=== PATIENT | male | born 1995 | race African-American/Black ===

== ENCOUNTER 2022-05-07 12:36 | Emergency (ER) | payer OTHER ==
[2022-05-07 13:24] VITALS: BP 129/90
--- NOTE | 2022-05-07 13:54 | CT Report ---
PROCEDURE: HEAD WO INDICATIONS: head injury yesterday, cont headache today TECHNIQUE: Noncontrast 4.5 mm thick angled axial sections acquired from the foramen magnum to the vertex. For r adiation dose reduction, the following was used: automated exposure control, adjustment of mA and/or kV according to patient size. COMPARISON: None. FINDINGS: Image quality: Excellent. CSF spaces: Basal cisterns are patent. No extra-axial fluid collections. Ventricles are normal in size and shape. Brain: No midline shift. No intracranial masses or hemorrhage. Childers-white matter interface is norm al. Skull and face: Calvarium and visualized facial bones are intact, without suspicious lesions. Sinuses: Visualized sinuses demonstrate scattered ethmoid fluid. There is opacification of the left frontal sinus. IMPRESSION: 1. No acute intracranial process. Reviewed by: Maryam Arnold MD on 05/07/2022 1:52 PM PDT Approved by: Maryam Arnold MD on 05/07/2022 1:52 PM PDT Station ID: [id number]
--- NOTE | 2022-05-07 14:10 | ED Physician Documentation ---
PD HPI HEAD INJURY - Stated complaint Stated Complaint: HEAD INJ - Chief complaint Chief Complaint: Trauma Hd/Nk - History obtained from History obtained from: Patient - History of Present Illness Mechanism of head injury: Fell Pain level max: 5 Pain level now: 2 Location of injury: Front, Back Quality of pain: Aching, Dull Associated symptoms: LOC, Nausea / vomiting. No: Neck pain, Paresthesias, Seizures, Ear drainage, Nasal drainage Symptoms improve with: Rest Symptoms worsen with: Light, Noise Contributing factors: No: Anticoagulated, Intoxicated - Additional information Additional information: 26-year-old male, active [employer] presents to the emergency department after a head injury yesterday while playing flag football. He states that he was unc onscious for 30 seconds to 1 minute. Had a headache and some nausea, no neck pain, no paresthesias. Had continued headaches today and was sent here for evaluation by the [employer]. Better with rest, worse with light and noise. The headache is currently mild, 2 out of 10, front and back, dull and aching. Not on any blood thinners. No seizure activity. Review of Systems Constitutional: denies: Fever, Chills Respiratory: denies: Cough GI: reports: Nausea. denies: Abdominal Pain, Vomiting, Diarrhea Skin: denies: Rash Musculoskeletal: denies: Neck pain, Back pain Neurologic: reports: Confused (Patient states he was confused after the initial event, this resolved after about 30 seconds.) PD PAST MEDICAL HISTORY - Past Medical History Past Medical History: No - Past Surgical History Past Surgical History: No - Present Medications Home Medications: Ambulatory Orders Medication Instructions Recorded Confirmed No Known Home Medications 05/07/22 05/07/22 - Allergies Allergies/Adverse Reactions: Allergies Allergy/AdvReac Type Severity Reaction Status Date / Time No Known Drug Allergies Allergy Verified 05/07/22 13:24 - Living Situation Living Situation: reports: With family Living Arrangement: reports: At home - Social History Does the pt smoke?: No Does the pt drink ETOH?: No Does the pt have substance abuse?: No - Family History Family history: reports: Non contributory PD ED PE NORMAL - Vitals Vital signs reviewed: Yes - General General: Alert and oriented X 3, No acute distress - HEENT HEENT: Moist mucous membranes - Neck Neck: Supple, no meningeal sign, No bony TTP - Cardiac Cardiac: RRR - Respiratory Respiratory: No respiratory distress, Clear bilaterally - Abdomen Abdomen: Soft, Non tender, Non distended - Back Back: No spinal TTP - Derm Derm: Warm and dry - Neuro Neuro: Alert and oriented X 3, manager biologics 2-12 intact, No motor deficit, No sensory deficit, Normal speech Eye Opening: Spontaneous Motor: Obeys Commands Verbal: Oriented GCS Score: 15 - Psych Psych: Normal mood, Normal affect Results - Vitals Vitals: Vital Signs - 24 hr 05/07/22 13:19 Temperature 35.6 C L Heart Rate 58 L Respiratory 17 Rate Blood Pressure 129/90 H O2 Saturation 100 Oxygen O2 Source Room air - Rads (name of study) head CT Radiology: Final report received, EMP read contemporaneously, See rad report (no acute abnormality) PD MEDICAL DECISION MAKING - ED course Complexity details: reviewed results, re-evaluated patient, considered differential, d/w patient ED course: 26-year-old male with a closed head injury yesterday. Likely mild concussion. No acute findings on head CT. Normal cerebellar test. We will continue supportive care and have him follow-up with his doctor for further care. Patient counseled regarding signs and symptoms for which I believe and urgent re-evaluation would be necessary. Patient with good understanding of and agreement to plan and is comfortable going home at this time This document was made in part using voice recognition software. While efforts are made to proofread this document, sound alike and grammatical errors may occur. Departure - Departure Disposition: 01 Home, Self Care Clinical Impression: Concussion Qualifiers: Encounter type: initial encounter Loss of consciousness presence/duration: with LOC of 30 min or less Qualified Code(s): S06.0X1A - Concussion with loss of consciousness of 30 minutes or less, initial encounter Condition: Good Instructions: ED Concussion Follow-Up: CHARBEL CRAFT MD [Primary Care Provider] - Within 1 week Comments: Your head CT does not show any acute abnormalities today. You do appear to have a mild concussion. Please limit screen time. Do not drive until cleared by your doctor. If you develop headaches during activity, please stop that activity. Please return if you worsen. You will need to be cleared by her doctor to return to work. Forms: Activity restrictions Discharge Date/Time: 05/07/22 15:00
== END 2022-05-07 15:00 | disposition home or self-care (01) ==
LOC: ED 12:36
DX: S06.0X1A Concussion with loss of consciousness of 30 minutes or less, initial encounter (principal); W18.39XA Other fall on same level, initial encounter; Y93.62 Activity, american flag or touch football; R11.0 Nausea
CPT/HCPCS: 99282; 99284

== ENCOUNTER 2023-08-08 09:32 | Outpatient (CLI) | payer OTHER ==
--- NOTE | 2023-08-08 22:09 | SLEEP CARE CONSULTATION ---
Information from patient questionnaire entered by Odalys Littlejohn. I have reviewed and concur with the information entered by Odalys Littlejohn. This document represents the service I personally performed and the decisions made by me, Jose Paris MD, [facility]. History of Present Illness Service Date and Time: 08/08/2023 0932 Reason for Visit: New patient Chief Complaint: reports: Unrefreshed sleep, Excessive daytime sleepiness, Observed pauses in breathing Date of Onset: 1-2YRS Usual bedtime: 10-11PM Time it takes to fall asleep: 1-3MINS Snores at night: Yes Observed to quit breathing while asleep: Yes Sleeps alone due to snoring: Yes Number of times waking at night: 1-2 Reasons for waking at night: reports: Snoring Toss, Turn, or Twitch while sleeping: No Recalls having dreams: No Usually gets out of bed at: 515AM Feels refreshed in the morning: No Morning headache: No Sleepy or fatigued during the day: Yes Ever fallen asleep while driving: Yes Takes day naps: Yes Dreams during day naps: Yes Prior sleep studies: No Additional HPI information: I had the pleasure of seeing Mr. Lopez today regarding the possibility of him having a sleep disorder. As you know, he is a 27-year-old gentleman who complains of loud snore and excessive daytime sleepiness for about 1 2 years. The patient tells me that he normally goes to bed around 10 - 11 pm, and it takes him approximately 1 - 3 minutes to fall asleep. He has been told that he snores loudly and irregularly at night. He has also been observed to stop breathing in his sleep. His has to sleep in a separate room. He can recall waking up on the average of 1 - 2 times during the night. Most of the time he wakes up because of having to use the bathroom. He has awakened occasionally because of his own snoring, choking, and having to gasp for air. There is not a lot of tossing and turning in his sleep. No somniloquy (sleep talking) or somnambulism (sleep walking). Generally, he can recall having faheem ams. In the morning he usually gets up out of the bed around 5:45 a.m. not feeling refreshed nor rested. He usually does not have a morning headache. During the day he complains of feeling sleepy and fatigued. His score on [place] Sleepiness Scale is 14 out of 24. He has fallen asleep while driving but no accident. He usually takes naps during the day. Upon falling asleep during the day he reports having vivid dreams. He reports having sleep paralysis. He reports having impaired concentration during the day. He denies having restless leg syndrome. - Parasomnia Symptoms Ever been unable to move upon waking from sleep: Yes Walks in sleep: No Talks in sleep: No Ever acted out dreams in sleep: No Ever felt weak in the knees when startled or emotional: No Bothered by creepy, crawly, restless sensations in legs: No Problems with memory or concentration: Yes Subjective Initial [place] Sleepiness Scale score: 16 (07/02/23) Social History The patient's occupation is a AM. Patient is and lives in [place]. Have you smoked in the past 12 months: No Alcohol use: Yes Alcohol amount and frequency: 2-3 DRINKS TWICE A WEEK Caffeine use: Yes Caffeine amount and frequency: 1 DRINK OR 200MG EVERY WORKDAY Family History Family history of sleep disordered breathing: Yes Family Hx Sleep Apnea: Father: Snoring, Sleep apnea - Untreated Allergies and Home Medications Known drug allergies: No Drug allergies reviewed: Yes Home medication list reviewed: Yes Allergy and home medication list: Allergies No Known Drug Allergies Allergy (Verified 08/05/23 09:44) Review of Systems Weight gain over past 5 years: 20 Cardiovascular: denies: high blood pressure, palpitations, chest pain, irregular heart rate or pulse, leg or foot swelling, have to sleep sitting up, other Respiratory: denies: shortness of breath, wheeze, sputum production, chronic cough, other Gastrointestinal: denies: heartburn, difficulty swallowing, nausea, vomitting, diarrhea, abdominal pain, other Urinary: denies: incontinence, frequency, urgency, impotence, other Neurological: denies: headaches, seizure, head trauma, disorientation, speech dysfunction, gait or balance problems, fainting or unconsciousness, other Psychiatric: denies: Attention Deficit Hyperactivity, anxiety, depression, mood disorder, claustrophobia, other Ear/Nose/Throat: reports: sinus problems, wisdom teeth removed Endocrine: denies: thyroid disease, history of goiter, sluggishness, too hot or cold, excessive thirst, increased appetite, increased urination, unexplained weakness, other Musculoskeletal: denies: joint pain, neck pain, back pain, joint swelling, muscle pain or cramping, mobility problems, other Immunologic: denies: sneezing, rash, itching, allergies to food or environment, other Physical Exam Vital signs obtained and entered by: ODALYS Mills MA Blood Pressure: 152/99 (LEFT ARM) Cuff size: regular Heart Rate: 88 O2 Saturation: 96 Height: 6 ft Weight: 233 lb 3.2 oz Body Mass Index: 31.6 BMI Classification: Obese Neck circumference: 16.5 Mood/affect: Normal HEENT: No craniofacial malformation Nostrils: patent to airflow Turbinates: normal Septum: midline Mouth and throat: narrow oropharynx Soft palate: long Hard palate: arched Uvula: normal, long Uvula visualization: 50% Mallampati Class II Tongue: normal in size Tonsils: 1+ (right) Chin and jaw: normal size and position Neck: normal w/o lymphadenopathy or thyromegaly Heart: regular rate and rhythm Lungs: clear bilaterally Extremities: no edema or clubbing Neurologic: intact Impression and Plan IMPRESSION: 1. Obstructive Sleep Apnea-Hypopnea Syndrome, as suggested by history of loud and irregular snoring, observed cessation of breath while asleep, unrefreshed sleep, cognitive impairment, and daytime hypersomnolence. Narrow oropharynx is a common predisposing factor for obstructive sleep apnea- hypopnea syndrome. I recommend proceeding to polysomnography to confirm the diagnosis and to assess severity. If he has significant sleep disordered breathing, a manual CPAP titration study will also be performed to find the optimal treatment pressure. I informed the patient of what the sleep studies involve and after some discussion, he agreed to proceed. Plan: 1. Schedule polysomnography + manual CPAP titration study and return in 1 to 2 weeks after the study to discuss result and initiate therapy. 2. Avoid long distance driving or when feeling sleepy. 3. Avoid alcohol, sedatives, and muscle relaxants around bedtime. Counseling Topics: Weight control Follow up with Sleep Care in: 1-2 months Visit Type: In Office Time Spent with Patient (minutes): 15 Provider Statement: I spent 100% of the Face to Face Visit with the patient with greater than 50% spent counseling the patient and coordination of care.
[2023-08-08 22:16] VITALS: BP 152/99; O2SAT 96
== END 2023-08-08 09:33 | disposition home or self-care (01) ==
LOC: SC 09:32
PROVIDERS: ATTEND Internal Medicine Pulmonary Disease
DX: R06.83 Snoring (principal); R06.81 Apnea, not elsewhere classified; G47.8 Other sleep disorders; R41.89 Other symptoms and signs involving cognitive functions and awareness; G47.10 Hypersomnia, unspecified; E66.9 Obesity, unspecified; Z68.31 Body mass index [BMI] 31.0-31.9, adult
CPT/HCPCS: 99202; 99212

== ENCOUNTER 2023-08-12 20:43 | Outpatient (CLI) | payer OTHER | END 2023-08-12 20:44 | disposition home or self-care (01) | LOC: SC 20:43 | PROVIDERS: ATTEND Internal Medicine Pulmonary Disease | DX: G47.33 Obstructive sleep apnea (adult) (pediatric) (principal) | CPT/HCPCS: 95810 ==

== ENCOUNTER 2023-08-22 15:45 | Outpatient (CLI) | payer OTHER ==
--- NOTE | 2023-08-22 14:06 | SLEEP CARE CONSULTATION ---
Information from patient questionnaire entered by Odalys Littlejohn. I have reviewed and concur with the information entered by Odalys Littlejohn. This document represents the service I personally performed and the decisions made by me, Jose Paris MD, [facility]. History of Present Illness Service Date and Time: 08/22/2023 1400 Initial [place] Sleepiness Scale score: 16 (07/02/23) Current [place] Sleepiness Scale score: 15 (08/22/23) Additional HPI information: Mr. Lopez returned for follow up of the sleep study he had on 08/12/2023. The polysomnography showed that the patient had normal sleep efficiency. The sleep architecture was abnormal for sleep fragmentation and reduced amount of time spent in slow wave sleep (N3). Respiratory monitoring showed mild obstructive sleep apnea-hypopnea (AHI = 6.9) associated with frequent arousals, oxyhemoglobin desaturation and mild hypoxia (mina oxygen saturation of 83%). The respiratory events occurred almost exclusively during supine sleep (supine AHI = 12.7; non-supine = 4.18). Snore was light to loud in intensity. There was no significant periodic leg movement of sleep. Cardiac rhythm was normal sinus rhythm without significant arrhythmia. No abnormal behavior (parasomnia) observed during the night. The patient was informed of these findings. I explained to him the pathophysiology behind obstructive sleep apnea. We then spent quite a bit of time discussing different treatment options. For mild obstructive sleep apnea, surgery and oral appliance are alternatives to nasal CPAP therapy but in moderate or severe cases, nasal CPAP is the most effective and reliable treatment. Weight loss in an obese individual is strongly recommended. After some discussion, he opted to go with the nasal CPAP therapy. I explained to him how CPAP machine works and what to expect when using the machine. Sleep Study - Results Type of Sleep Study: Polysomnography (COMPLETED 08/12/23) Prior sleep studies: No Allergies and Home Medications Drug allergies reviewed: Yes Home medication list reviewed: Yes Allergy and home medication list: Allergies No Known Drug Allergies Allergy (Verified 08/08/23 09:31) Review of Systems Review of systems same as previous: Yes (NO CHANGE) Physical Exam Vital signs obtained and entered by: ODALYS Mills MA Height: 6 ft (PER PT) Weight: 205 lb (PER PT) Body Mass Index: 27.8 BMI Classification: Overweight Impression and Plan IMPRESSION: 1. Obstructive Sleep Apnea-Hypopnea Syndrome, mild, and positional. Possibly, this is the cause of the patients symptoms of unrefreshed sleep, and excessive daytime sleepiness. As mentioned above, the patient will return for a CPAP titration study. PLAN: 1. Schedule a manual CPAP/BiPAP titration study. 2. Return for follow up after the sleep study. I will order him the equipment at that time. Follow up with Sleep Care in: 1-2 months Visit Type: Telehealth Video Video Type: Doximity Patient Location: in a car Location of Provider: Office Patient agrees and consents to this telehealth visit type: Yes Patient agrees to have their insurance billed: Yes Time Spent with Patient (minutes): 15 Provider Statement: I spent 100% of the Telehealth Video Call with the patient with greater than 50% spent counseling the patient and coordination of care.
== END 2023-08-22 15:46 | disposition home or self-care (01) ==
LOC: SC 15:45
PROVIDERS: ATTEND Internal Medicine Pulmonary Disease
DX: G47.33 Obstructive sleep apnea (adult) (pediatric) (principal)
CPT/HCPCS: 99212

== ENCOUNTER 2023-09-16 19:20 | Outpatient (CLI) | payer OTHER | END 2023-09-16 19:21 | disposition home or self-care (01) | LOC: SC 19:20 | PROVIDERS: ATTEND Internal Medicine Pulmonary Disease | DX: G47.33 Obstructive sleep apnea (adult) (pediatric) (principal) | CPT/HCPCS: 95811 ==

== ENCOUNTER 2023-10-05 14:23 | Outpatient (CLI) | payer OTHER ==
--- NOTE | 2023-10-05 14:36 | Sleep Patient Instructions ---
Sleep Center Visit Summary - Patient Visit Information Reason for Visit: Titration study follow-up - Patient Instructions Instructions Attached: CPAP Additional Instructions: You were here for a follow up after titration study. You are being started on CPAP therapy with pressure setting at 13 cmH2O. You will need to call the sleep care office to set up your follow up once you have your CPAP machine to check compliance and response to therapy at that time. You may call the office with any concerns about pressure feeling too low or too much for adjustment, if needed. You should contact DME supplier for any questions or concerns about mask or equipment. Please call office to schedule a follow up appointment in the sleep care office one month after obtaining new device. - Clinic Information Contact: [facility] [address] [place] [address] [email or web address] T: [phone]
--- NOTE | 2023-10-05 14:40 | SLEEP CARE CONSULTATION ---
Information from patient questionnaire entered by Tatiana Littlejohn. I have reviewed and concur with the information entered by Tatiana Littlejohn. This document represents the service I personally performed and the decisions made by , Dianne Larose ARNP. History of Present Illness Service Date and Time: 10/05/2023 142 Initial [place] Sleepiness Scale score: 16 (07/02/23) Current [place] Sleepiness Scale score: 17 (10/05/23) Additional HPI information: JACK Gildardo TANNER JR returns for follow up of the sleep study with a manual CPAP titration study performed on 09/16/2023. Previous study done on 08/12/2023 showed mild obstructive sleep apnea with AHI 6.9. The patient was informed of the following polysomnography findings: CPAP was initiated at 5 cmH2O and titrated up to CPAP at 15 cmH2O. CPAP at 13 cmH2O appeared to be optimal (AHI of 3.5 per hour on the pressure). There was supine REM sleep on the pressure. Oxygen saturation was normal throughout the night. Lower CPAP settings allowed a few residual respiratory events. The ministerio ent appeared to have tolerated positive airway pressure therapy fairly well. I explained how CPAP machine works and what to expect when using the machine. Using CPAP every night in order to get used to it was emphasized. Patient advised to put CPAP mask on before getting into bed so as not to fall asleep without CPAP. To assist acclimation to CPAP use, it could also be used for a short time during day while reading or watching TV. The patient was instructed to call the CPAP supplier to discuss any mechanical problem that may occur. If the mask given is uncomfortable or is difficult to keep on through the night even with adjustment, contact the CPAP supplier as many will replace with another mask style if notified before 30 days. If snoring or perceives is not getting enough air or too much air from the machine, notify this office. Patient counseled not drink alcohol less than 4 hours before bedtime as it can increase snoring and apnea. Patient was cautioned about risks of drowsy driving until sleepiness symptoms resolve. Sleep Study - Results Type of Sleep Study: Polysomnography (COMPLETED 08/12/23 TITRATION COMPLETD 09/16/23) Prior sleep studies: No Polysomnography/Home Sleep Study results: IMPRESSION: The quality of the study is good. CPAP was initiated at 5 cmH2O and titrated up to CPAP at 15 cmH2O. CPAP at 13 cmH2O appeared to be optimal (AHI of 3.5 per hour on the pressure). There was supine REM sleep on the pressure. Oxygen saturation was normal throughout the night. Lower CPAP settings allowed a few residual respiratory events. The patient appeared to have tolerated positive airway pressure therapy fairly well. The patients sleep efficiency was normal. The sleep architecture was also normal. There was no significant periodic leg movement of sleep (0.5) 0.5. Cardiac rhythm was normal sinus rhythm without significant arrhythmia. No abnormal behavior (parasomnia) observed during the night. Allergies and Home Medications Known drug allergies: No Drug allergies reviewed: Yes Home medication list reviewed: Yes (no changes) Allergy and home medication list: Allergies No Known Drug Allergies Allergy (Verified 10/03/23 10:22) Review of Systems Review of systems same as previous: Yes (NO CHANGE) Physical Exam Vital signs obtained and entered by: TATIANA Mills MA Blood Pressure: 145/99 (RIGHT ARM) Cuff size: regular Heart Rate: 69 O2 Saturation: 100 Height: 6 ft (PER PT) Weight: 235 lb 12.8 oz Body Mass Index: 31.9 BMI Classification: Obese Impression and Plan 1. Obstructive Sleep Apnea-Hypopnea Syndrome, mild. He returns after titration study completed on 09/16/2023. His optimal pressure appeared to be 13 cmH2O with recommendation that 8-13 cmH2O would also be appropriate. He is excited to get started on CPAP because he felt much more rested that night after using the CPAP. The patient will be started on nasal autoCPAP therapy with pressure set at 13 cmH2O. Compliance guidelines also reviewed. A copy of compliance guidelines will be given for reference at check out. Because the apnea is more severe supine, I instructed to avoid sleeping supine using pillow positioning until able to start CPAP use. 2. Obesity, unspecified. Currently patients BMI is 31.9. Obesity increases the risk of apnea, CPAP pressure requirements and overall health risks especially cardiovascular and diabetes. Thus patient is advised to lose weight. * Nasal auto CPAP therapy, pressure at 13 cm H2O. * Attempt to lose weight. * Avoid alcohol consumption near bedtime. * Avoid supine sleep until using CPAP. * The patient is again cautioned about driving until sleepiness completely resolves. * Return one month after CPAP obtained. I will assess response to therapy and compliance at that time. Counseling Topics: Weight loss health impact Prescriptions: Auto CPAP Follow up with Sleep Care in: other (compliance follow up) Visit Type: In Office Time Spent with Patient (minutes): 15 Provider Statement: I spent 100% of the Face to Face Visit with the patient with greater than 50% spent counseling the patient and coordination of care.
[2023-10-05 14:45] VITALS: BP 145/99; O2SAT 100
== END 2023-10-05 14:24 | disposition home or self-care (01) ==
LOC: SC 14:23
PROVIDERS: ATTEND Nurse Practitioner Family
DX: G47.33 Obstructive sleep apnea (adult) (pediatric) (principal); E66.9 Obesity, unspecified; Z68.31 Body mass index [BMI] 31.0-31.9, adult
CPT/HCPCS: 99212